=== PATIENT | female | born 1990 | race Caucasian/White ===

== ENCOUNTER 2018-01-01 23:57 | Emergency (ER) | payer OTHER ==
[~2018-01-01] VITALS: Ht 167.6 cm; Wt 99.3 kg
[2018-01-02 00:25] VITALS: Ht 167.6 cm; Wt 99.3 kg
[2018-01-02 03:07] VITALS: BP 129/74
== END 2018-01-02 03:07 | disposition home or self-care (01) ==
LOC: ED 23:57
DX: J20.9 Acute bronchitis, unspecified (principal); E78.00 Pure hypercholesterolemia, unspecified
CPT/HCPCS: 87804; J7512; Q0092

== ENCOUNTER 2019-03-29 16:57 | Emergency (ER) | payer OTHER ==
[~2019-03-29] VITALS: Ht 167.6 cm; Wt 51.9 kg
[2019-03-29 17:08] VITALS: Ht 167.6 cm; Wt 51.9 kg
[2019-03-29 18:33] VITALS: BP 153/93
== END 2019-03-29 18:33 | disposition home or self-care (01) ==
LOC: ED 16:57
DX: L00 Staphylococcal scalded skin syndrome (principal); E78.00 Pure hypercholesterolemia, unspecified; F84.0 Autistic disorder

== ENCOUNTER 2019-09-02 11:52 | Emergency (ER) | payer OTHER ==
[~2019-09-02] VITALS: Ht 165.1 cm; Wt 101.2 kg
[2019-09-02 13:28] LABS: BASOPHIL % 0.3 % (0-2); PLATELET COUNT 413 x10^3mcL (130-400); RED CELL DISTRIBUTION WIDTH 13.8 % (11.5-14.5)
[2019-09-02 15:26] LABS: UA SPECIFIC GRAVITY >=1.030 (1.005-1.035); microscopic required? YES; urine erythrocyte 3+ (NEGATIVE)
[2019-09-02 17:25] VITALS: BP 125/82
== END 2019-09-02 17:25 | disposition home or self-care (01) ==
LOC: ED 11:52
PROVIDERS: Emergency Medicine
DX: N92.0 Excessive and frequent menstruation with regular cycle (principal); N83.202 Unspecified ovarian cyst, left side; N83.201 Unspecified ovarian cyst, right side; E78.00 Pure hypercholesterolemia, unspecified
CPT/HCPCS: 36415